=== PATIENT | female | born 1940 | race Caucasian/White ===

== ENCOUNTER → 2016-07-10 | Outpatient (CLI) | payer OTHER ==
[~2016-07-10] MED LIST: ALEN70TA2 PO; ASCO10003 PO; ASPI-232 PO; ATOR-24 PO; CALCTAB5 PO; CYAN100020 PO; DICL75TA2 PO; ESCI10TA17 PO; HYDR-4383 PO; LEVO25TA PO; LPR25 PO; MULT-506 PO; OMEG10007 PO; RXC5 PO; SERT1TAB72 PO
--- NOTE | 2016-07-10 16:05 | DIAGNOSTIC IMAGING REPORT ---
CHEST 2 VIEWS ROUTINE CLINICAL HISTORY: Preoperative evaluation. COMPARISON STUDY: Chest radiograph June 09, 2014 PA FINDINGS: Incidental note is made of a right shoulder arthroplasty. Lung volumes are normal. There is no pneumothorax or pleural effusion. There is borderline cardiomegaly without evidence of pulmonary edema. Linear left lung opacity suggests atelectasis. Lateral view demonstrates several thoracic spine compression deformities which are new since exam of June 09, 2014 but likely chronic. IMPRESSION: 1. No acute findings. 2. Borderline cardiomegaly. Electronically signed by: Chavez Xavier M.D. 07/10/2016 4:04 PM Dictated Date/Time: 07/10/2016 4:02 PM
== END | disposition home or self-care (01) ==
LOC: C.RAD 15:00
PROVIDERS: ATTEND Orthopaedic Surgery
DX: Z01.810 Encounter for preprocedural cardiovascular examination (principal); Z01.811 Encounter for preprocedural respiratory examination; Z01.812 Encounter for preprocedural laboratory examination; M25.511 Pain in right shoulder; I51.7 Cardiomegaly

== ENCOUNTER → 2016-07-17 | Outpatient (CLI) | payer OTHER ==
[~2016-07-17] MED LIST changes: -CYAN100020 PO; -HYDR-4383 PO; -OMEG10007 PO; -SERT1TAB72 PO
--- NOTE | 2016-07-17 12:31 | DIAGNOSTIC IMAGING REPORT ---
RIGHT SHOULDER CT CT DOSE: 390.32 mGycm HISTORY: Right shoulder pain. TECHNIQUE: Multiaxial CT images of the right shoulder were performed and reformatted in the sagittal and coronal plane without the use of contrast. COMPARISON: Right shoulder 07/10/2016. FINDINGS: There is an old, healed right anterior second rib fracture. There is a reverse right total shoulder arthroplasty. Metallic artifact results in suboptimal evaluation of the right shoulder. No definite acute fracture or dislocation within the right shoulder. One of the glenoid screws is fractured. The right clavicle is intact. IMPRESSION: The patient is status post a reverse right total shoulder arthroplasty. 1 of the glenoid screws is fractured. Otherwise, no acute fracture or dislocation within the right shoulder. Electronically signed by: Rafael Quarles M.D. 07/17/2016 12:29 PM Dictated Date/Time: 07/17/2016 12:25 PM
== END | disposition home or self-care (01) ==
LOC: C.CTS 11:41
PROVIDERS: ATTEND Orthopaedic Surgery
DX: M25.511 Pain in right shoulder (principal)

== ENCOUNTER 2016-07-28 06:30 | Inpatient (IN) | payer OTHER ==
[2016-07-10 15:46] LABS: BASO % 0.4 %; BASO ABS # 0.02 K/uL (0-0.2); COMPLETE YES; HEMATOCRIT 36.9 % (37-47); IG% 0.2 %; LYMPH % 32.9 %; LYMPH ABS # 1.68 K/uL (1.2-3.4); MEAN CELL VOLUME 86.8 fL (80-100); MEAN CORPUSCULAR HEMOGLOBIN 30.8 pg (25-34); MEAN CORPUSCULAR HGB CONC 35.5 g/dl (32-36); MEAN PLATELET VOLUME 9.7 fL (7.4-10.4); MONO % 10.6 %; NEUT % 54.9 %; PLATELET COUNT 289 K/uL (130-400); RED BLOOD COUNT 4.25 M/uL (4.2-5.4)
[2016-07-10 16:00] LABS: PROTHROMBIN TIME (PATIENT) 10.5 SECONDS (9.0-12.0)
[2016-07-10 16:22] LABS: BLOOD UREA NITROGEN 5 mg/dl (7-18); BUN/CREATININE RATIO 10.8 (10-20); CALCIUM 9.6 mg/dl (8.5-10.1); CARBON DIOXIDE 27 mmol/L (21-32); CHLORIDE 97 mmol/L (98-107); GLUCOSE 76 mg/dl (70-99); POTASSIUM 3.8 mmol/L (3.5-5.1); SODIUM 134 mmol/L (136-145)
[2016-07-10 17:01] LABS: URINE APPEARANCE CLEAR (CLEAR); URINE BILIRUBIN NEG (NEG); URINE COLOR YELLOW; URINE EPITHELIAL CELL AUTO 0-5 /lpf (0-5); URINE NITRITE NEG (NEG); URINE PH 5.5 (4.5-7.5); URINE SPECIFIC GRAVITY 1.003 (1.000-1.030); UROBILINOGEN NEG (NEG)
[2016-07-10 17:05] LABS: MANUAL MICROSCOPIC REQUIRED? NO; REVIEW REQ? NO
[2016-07-14 09:00] VITALS: BMI 23.0
--- NOTE | 2016-07-27 10:53 | HISTORY & PHYSICAL EXAMINATION ---
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 HISTORY OF PRESENT ILLNESS: Monique is a very pleasant 75-year-old female, underwent a reverse right shoulder arthroplasty 2 years ago. She did well for a year and a half, but then felt a snap in her shoulder and has been having shoulder pain for the past 6 months. X-rays showed loosening of the glenoid baseplate with a broken screw. She has constant soreness of her shoulder and after extensive counseling with her and her family, she elected to proceed with a revision baseplate with possible conversion to a reverse shoulder arthroplasty versus hemiarthroplasty. PAST MEDICAL HISTORY: Significant for an IA in 1998, hypothyroidism and arthritis. PAST SURGICAL HISTORY: Significant for a reverse right shoulder arthroplasty 2 years ago and hysterectomy. ALLERGIES: INCLUDE MACROBID. MEDICATIONS: Include baby aspirin 81 mg daily, Lipitor 40 mg daily, Voltaren 75 mg twice a day, Lopressor 25 mg daily, Synthroid 0.25 mg daily, and Fosamax 70 mg weekly. FAMILY HISTORY: Noncontributory. SOCIAL HISTORY: She smokes half a pack a day. She drinks about 4 drinks per week and she lives on her own. REVIEW OF SYSTEMS: She complains of right shoulder pain. All other pertinent review of systems are negative. PHYSICAL EXAMINATION: GENERAL: She is awake, alert and oriented x3. She is in no apparent distress. She is very pleasant. HEENT: Pupils equal, round and reactive to light. Extraocular motions are intact. Oral mucosa is pink and moist. HEART: Regular rate per radial pulse. LUNGS: Ingris symmetrically bilaterally with no audible breath sounds. ABDOMEN: Soft, nontender, and nondistended. MUSCULOSKELETAL: On physical examination of the right shoulder, she has about 90 degrees of forward elevation and 90 degrees of abduction. Passively, I can get her a little bit further and she has a lot of pain. She has a lot of pain doing any motion of her shoulder. There are no signs of infection. The incisions are well healed. She is neurovascularly intact. IMAGING STUDIES: X-rays of the right shoulder show some loosening of the glenoid baseplate and a broken superior locking screw. 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 PLAN: We will proceed with a revision reverse right shoulder arthroplasty. She is consented for both the reverse as well as a conversion to hemiarthroplasty. Postoperatively, she will be placed in an arm sling and kept overnight for postoperative medical evaluation.
[2016-07-28] VITALS (8 sets, daily range): BP systolic 94–133; BP diastolic 59–74; PULSE 72–81; TEMP 36.3–36.8; O2SAT 94–99; Ht 165.1 cm; Wt 63.6 kg
[~2016-07-28] VITALS: Ht 165.1 cm; Wt 63.6 kg
[~2016-07-28 06:30] MED LIST changes: +ACETAMINOPHEN 500 MG TAB PO SCH; +BUPIVACAINE/EPINEPHRINE 0.25% 1:200,000 30 ML VIAL ONE; +CEFAZOLIN 2000 MG/60 ML D5W 60 ML IV SCH; +CeleBREX 200 MG CAP PO SCH; +DEXAMETHASONE SOD INJ 4 MG/ML VIAL ONE; +FAMOTIDINE 20 MG TAB PO SCH; +GABAPENTIN 300 MG CAP PO SCH; +LACTATED RINGER'S 1000ML 1,000 ML IV SCH; +LACTATED RINGER'S 1000ML IV SCH; +ROPIVACAINE 5MG/ML 30 ML 150 MG, BUPIVACAINE/EPINEPHR 0.5% MPF 30 ML, KETOROLAC TROMETH... INFIL SCH; -RXC5 PO; +TRAMADOL HCL 50 MG TAB PO SCH
--- NOTE | 2016-07-28 06:30 | History & Physical Bridge Note ---
H&P Re-Evaluation Bridge Note: I have examined the patient, reviewed the History & Physical and in the interval since the performance of the History & Physical I have noted the following changes of clinical significance: No changes noted
[2016-07-28] MEDS ORDERED: PROPOFOL IV EMULSION 10 MG/ML 20 ML VIAL IV ONE ×2 (08:28→13:09)
[2016-07-28] MEDS ORDERED: NEOSTIGMINE METHYLSULFATE 5 MG/5 ML SYR ONE (08:28)
[2016-07-28] MEDS ORDERED: ONDANSETRON INJ 2 MG/ML 2 ML VIAL ONE ×2 (08:28→13:26)
[2016-07-28] MEDS ORDERED: ROCURONIUM BROMIDE 10 MG/ML 5 ML VIAL ONE (08:28)
[2016-07-28] MEDS ORDERED: MIDAZOLAM HCL 1 MG/ML 2ML VIAL ONE ×2 (08:28→09:51)
[2016-07-28] MEDS ORDERED: LIDOCAINE HCL 2% 2 ML VIAL (20MG/ML) ONE (08:28)
[2016-07-28] MEDS ORDERED: GLYCOPYRROLATE INJ 0.2 MG/ML VIAL ONE (08:28)
[2016-07-28] MEDS ORDERED: FENTANYL CITRATE INJ 50 MCG/1 ML 2 ML VIAL ONE ×3 (08:28→13:31)
[2016-07-28] MEDS ORDERED: BACITRACIN 50000 UNIT VIAL ONE (09:56)
[2016-07-28] MEDS ORDERED: ORTHO JOINT ANESTHETIC ONE (09:56)
[2016-07-28] MEDS ORDERED: PHENYLEPHRINE HCL INJ 10 MG/ML VIAL ONE (10:53)
[2016-07-28] MEDS ORDERED: DEXAMETHASONE SOD INJ 4 MG/ML VIAL ONE (10:53)
[2016-07-28] MEDS ORDERED: EpHEDrine SULFATE INJ 50 MG/ML AMP ONE (10:54)
[2016-07-28] MEDS ORDERED: ATROPINE SULFATE 0.1 MG/ML 5ML SYR IV PRN (13:30)
[2016-07-28] MEDS ORDERED: PROMETHAZINE HCL INJ 6.25 MG in SODIUM CHLORIDE 0.9% 50ML 50 ML IV PRN (13:30)
[2016-07-28] MEDS ORDERED: FENTANYL CITRATE INJ 50 MCG/1 ML 2 ML VIAL IV PRN (13:30)
[2016-07-28] MEDS ORDERED: ONDANSETRON INJ 2 MG/ML 2 ML VIAL IV PRN ×2 (13:30→13:45)
[2016-07-28] MEDS ORDERED: EpHEDrine SULFATE INJ 50 MG/ML AMP IV PRN (13:30)
[2016-07-28] MEDS ORDERED: ESMOLOL HCL 10 MG/ML 10 ML VIAL ONE (13:33)
--- NOTE | 2016-07-28 13:44 | [facility] Post Operative Brief Note ---
Immediate Operative Summary Operative Date Jul 28, 2016. Pre-Operative Diagnosis Failed Right Reverse Shoulder Arthroplasty with Loose Glenoid Baseplate Post-Operative Diagnosis Failed Right Reverse Shoulder Arthroplasty with Loose Glenoid Baseplate Procedure(s) Performed Right Revision Total Shoulder Arthroplasty--Cemented Surgeon Dr. Toth Nutrition Program Instructor Surgeon(s) JENNIFER Sullivan Estimated Blood Loss 350 ml Findings as above Specimens A. Removed Hardware Right Shoulder Complication(s) None Disposition Recovery Room / PACU
[2016-07-28] MEDS ORDERED: METOCLOPRAMIDE HCL INJ 5 MG/ML 2 ML VIAL IV PRN (13:45)
[2016-07-28] MEDS ORDERED: OXYCODONE HCL IR 5 MG TAB (IMMEDIATE RELEASE) PO PRN (13:45)
[2016-07-28] MEDS ORDERED: BISACODYL 10 MG SUPP PR PRN (13:45)
[2016-07-28] MEDS ORDERED: MoRPHine SULFATE 2 MG/ML CARP IV PRN (13:45)
[2016-07-28] MEDS ORDERED: MAGNESIUM HYDROXIDE SUSP 30 ML UDC PO PRN (13:45)
[2016-07-28] MEDS ORDERED: NALOXONE HCL 0.4 MG/1 ML VIAL/CARP IV PRN (13:45)
[2016-07-28] MEDS ORDERED: SOD PHOSPHATE/SOD BIPHOSPHATE ENEMA 132 ML BTL PR PRN (13:45)
--- NOTE | 2016-07-28 14:54 | Anesthesiology Progress Note ---
Anesthesia Post Op Note Date & Time Jul 28, 2016 at 14:54 Vital Signs Pain Intensity: 0 Vital Signs Past 12 Hours Date Time Temp Pulse Resp B/P Pulse Ox O2 Delivery O2 Flow Rate FiO2 07/28/16 14:45 36.5 73 23 106/60 97 Nasal Cannula 2 07/28/16 14:35 74 13 97/57 98 Nasal Cannula 2 07/28/16 14:25 80 15 80/58 98 Mask 10 07/28/16 14:15 85 16 105/69 98 Mask 10 07/28/16 14:09 36.6 91 17 136/73 100 Mask 10 07/28/16 07:06 36.8 78 18 133/74 98 Room Air Notes Mental Status: alert / awake / arousable, participated in evaluation Pt Amnestic to Procedure: Yes Nausea / Vomiting: adequately controlled Pain: adequately controlled Airway Patency, RR, SpO2: stable & adequate BP & HR: stable & adequate Hydration State: stable & adequate Neuraxial Anesthesia: was administered, sensory block is resolving Anesthetic Complications: no major complications apparent
[2016-07-28] MEDS: D5W AND 1/2NSS + 20MEQ KCL 1,000 ML IV SCH (15:52)
[2016-07-28] MEDS: ACETAMINOPHEN IV 1,000 MG in EMPTY BAG 0 ML IV SCH ×2 (15:59→23:51)
--- NOTE | 2016-07-28 17:27 | OPERATIVE REPORT ---
DATE OF OPERATION: 07/28/2016 PREOPERATIVE DIAGNOSIS: Aseptic loosening of a right glenoid baseplate. POSTOPERATIVE DIAGNOSIS: Same. PROCEDURE: Removal of right reverse shoulder arthroplasty including humeral and glenoid components and conversion to reverse total shoulder arthroplasty. SURGEON: Dr. Melchor Toth. SENIOR FIRE PROTECTION ENGINEER: Agustín Marcano PA-C, whose assistance was necessary for positioning the arm and helping with instrumentation. ANESTHESIA: General with a right interscalene nerve block. COMPLICATIONS: None. CONDITION: Stable to PACU. INDICATIONS: This case did take significant increased time given the amount of scarring and the fact it was a revision procedure. The case took about twice as long as normal to find a soft tissue planes and remove scar tissue to get adequate exposure. INDICATIONS: Monique is a pleasant 75-year-old female who underwent a reverse right shoulder arthroplasty 2 years ago. She did well for a year and a half, unfortunately 6 months ago she had a sudden pain in her shoulder and she has been having pain ever since. X-rays from my office did show loosening of the glenoid baseplate. Lab values including white count, sed rate and CRP were all negative and CT scan showed signs of loosening. With continued pain she elected to undergo a revision shoulder replacement. OPERATION AND FINDINGS: On 07/28/2016 she arrived at [facility] for the above procedure. She was seen in the preoperative holding area and the operative extremity was identified and signed. She was given a preoperative antibiotic and a right interscalene nerve block. She was taken back to the operating room, laid on the table in supine position and put under general anesthesia. She was then put into the beachchair position. The right shoulder was prepped and draped in a sterile fashion. Time-out was done and the patient and operative extremity was properly identified. The previous deltopectoral interval was opened. Time was spent going through the clavipectoral fascia and exposing the anterior shoulder. Significant time was spent developing tissue planes through the scar tissue. The subscapularis was fully repaired from the previous surgery and looked good. There was also significant tendinous structures at the supraspinatus. The rotator interval was opened up and the subscapularis was released with a centimeter of cuff tissue remaining. The shoulder was then dislocated and the humeral tray and bearing were removed. There were no signs of infection. The glenoid was then exposed. The glenosphere and the glenoid baseplate was obviously loose. The glenosphere was removed first and then the glenoid baseplate was removed by removing all the screws and pulling it off. They came off fairly easily. There was a central cavitary defect and a defect from the 1 o'clock to the 3 o'clock position. Significant time was spent making sure I had good visualization and I felt like I had enough bone stock to replace another baseplate. The central guidepin was once again drilled. I drilled a little bit more posterior than before to get into better bone stock and I felt I was able to get a better purchase with the drill. The glenoid baseplate was then re-reamed and I was able to get about 75% coverage of the baseplate with the anterior superior quadrant to be slightly missing. Significant time was spent removing fibrous tissue from around the previous drill holes. Once the glenoid was properly prepared, the central defect was filled with Synthes Norian bone graft. While the bone graft was still soft, the glenoid baseplate was placed and a 40 mm central screw was placed. I was able to get excellent purchase. I then waited for the surrounding bone graft to do harden and heal. Superior, inferior and posterior screws were placed, each one I was able to get through good bone stock and get great purchase. No screw was placed anteriorly. I felt like I was able to get a very stable baseplate. A 36 mm eccentric glenosphere was then placed. The proximal humerus was then exposed. Several different trial humeral trays were used and a size 5+3 seemed to be the best fit and the best offset. A final +3 humeral bearing was snapped into a +5 humeral tray and the ring lock mechanism was engaged. The humeral tray was then attached to the humeral stem. The shoulder was reduced, brought through a full range of motion and felt to be stable. The surrounding soft tissues were all irrigated with 3 liters of normal saline solution with bacitracin. Surrounding soft tissues were then injected with 100 mL in orthopedic pain control cocktail. Overall, I was happy with the stability and the motion. The subscapularis was then tenodesed back to the lesser tuberosity with [id number] FiberWire sutures. I was also able to get some sutures in the lateral rotator interval. A drain was placed. The axillary nerve was palpated. The wound was once again irrigated and the skin was closed with 2-0 Vicryl and a running 3-0 V-Loc suture. A Prineo dressing was placed. She was then placed in a regular arm sling, extubated, transferred to a litter and taken to the postanesthesia care unit in stable condition. She tolerated the procedure well. IMPLANTS REMOVED: I removed a Biomet comprehensive +3 humeral bearing and a standard humeral tray as well as a +3 lateralized 36 mm eccentric glenosphere and a 25 mm mini baseplate. IMPLANTS USED: Standard 36 mm eccentric glenosphere on a 25 mm mini baseplate with a 40 mm central screw, a 30 mm posterior peripheral locking screw and a 35 mm superior and inferior peripheral locking screw, a +5 humeral tray and a +3 humeral bearing were used. No cement was used during the case, but Norian bone graft was used. I attest to the content of the Intraoperative Record and any orders documented therein. Any exceptio ns are noted below.
[2016-07-28] MEDS: CEFAZOLIN IV 2,000 MG in DEXTROSE 5% 50ML 50 ML IV SCH (17:38)
[2016-07-28] MEDS: KETOROLAC TROMETHAMINE 15 MG/ML VIAL IV. SCH ×2 (17:39→23:51)
[2016-07-28] MEDS: CALCIUM 600MG + VIT D 400 IU TAB PO SCH (20:26)
[2016-07-28] MEDS: DOCUSATE SODIUM 100 MG CAP PO SCH (20:27)
[2016-07-28] MEDS ORDERED: ATORVASTATIN 40 MG TAB PO SCH (21:00)
[2016-07-28] MEDS ORDERED: SENNA 8.6 MG TAB PO SCH (21:00)
[2016-07-28] MEDS ORDERED: METOPROLOL TARTRATE 25 MG TAB PO SCH (21:00)
[2016-07-28] MEDS ORDERED: ESCITALOPRAM OXALATE 10 MG TAB PO SCH (21:00)
[2016-07-29] MEDS: D5W AND 1/2NSS + 20MEQ KCL 1,000 ML IV SCH ×2 (01:29→11:30)
[2016-07-29] MEDS: CEFAZOLIN IV 2,000 MG in DEXTROSE 5% 50ML 50 ML IV SCH (01:30)
[2016-07-29 04:00] VITALS: BP 119/73; PULSE 64; TEMP 36.3; O2SAT 99
[2016-07-29] MEDS: KETOROLAC TROMETHAMINE 15 MG/ML VIAL IV. SCH (05:56)
[2016-07-29] MEDS ORDERED: LEVOTHYROXINE 25 MCG TAB PO SCH (06:00)
[2016-07-29 07:06] VITALS: BP 121/72; PULSE 62; TEMP 36.6; O2SAT 99
[2016-07-29 07:23] LABS: HEMATOCRIT 29.9 % (37-47); MEAN CELL VOLUME 90.3 fL (80-100); MEAN CORPUSCULAR HEMOGLOBIN 31.1 pg (25-34); MEAN CORPUSCULAR HGB CONC 34.4 g/dl (32-36); MEAN PLATELET VOLUME 9.9 fL (7.4-10.4); PLATELET COUNT 236 K/uL (130-400); RED BLOOD COUNT 3.31 M/uL (4.2-5.4); WHITE BLOOD COUNT 15.92 K/uL (4.8-10.8)
[2016-07-29 07:47] LABS: BUN/CREATININE RATIO 18.1 (10-20); CALCIUM 8.3 mg/dl (8.5-10.1); CREATININE 0.57 mg/dl (0.60-1.20); POTASSIUM 3.9 mmol/L (3.5-5.1)
[2016-07-29] MEDS: CALCIUM 600MG + VIT D 400 IU TAB PO SCH (08:43)
[2016-07-29] MEDS: DOCUSATE SODIUM 100 MG CAP PO SCH (08:43)
[2016-07-29] MEDS: ACETAMINOPHEN IV 1,000 MG in EMPTY BAG 0 ML IV SCH (08:43)
[2016-07-29] MEDS ORDERED: RXC5 PO (08:47)
--- NOTE | 2016-07-29 08:49 | Discharge Instructions ---
Discharge Instructions Date of Service Jul 29, 2016. Admission Reason for Admission: R Shoulder Mechanical Complication Interal Pros Discharge Discharge Diagnosis / Problem: R reverse total shoulder Discharge Goals Goal(s): Decrease discomfort, Improve function Activity Recommendations Activity Limitations: as noted below Shower/Bathe: may shower/bathe in 3 days sling for 6 weeks . Instructions / Follow-Up Instructions / Follow-Up Activity and Therapy Recommendations: * Wear your sling for 6 weeks, unless otherwise instructed. You may remove your sling to shower and to dress, but otherwise, you should be in your sling at all times, including while sleeping * The shoulder replacement is very stable and you can use your hand while in the sling * Physical Therapy should start about 6 weeks from your day of surgery. Therapy will last about 8-12 weeks * You were shown a series of exercises in the hospital. Do these exercises daily including the exercises you were shown in physical therapy. Medications: * Narcotic You will likely be sent home from the hospital with a prescription for the narcotic pain medication that worked best throughout your stay. * Other medications may be prescribed for specific circumstances. If you have any questions, please call the office at . * Resume previous home medications unless otherwise instructed Dressing Care: You will likely have a Prineo dressing covering your incision. This looks like a glued on clear mesh dressing. Do not remove this dressing until you follow- up in my office in 2-3 weeks. Its pretty hard to peel it off. You may leave the Prineo dressing uncovered or cover it if it is draining a little bit. No further dressing care is required Showering: You may shower 3 days from the day of surgery. Leave the Prineo dressing intact and let the soapy shower water run over it. Do not scrub or soak the dressing or the incision. Things To Watch For: * Drainage from the incision site that occurs more than one week after your surgery. * Increased redness at the incision site. * Fever above 102 degrees Fahrenheit. * Unusual chest pain or shortness of breath. * Call [facility] at with any of the above problems Follow-Up Visit: Follow-up with Dr. Toth 2 weeks after your day of surgery. An appointment was probably scheduled when you signed-up for surgery in the office. If you have any questions call Office Instructions: More detailed instructions as well as Frequently Asked Questions were provided in a folder by our office when you signed-up for surgery. Please review these instructions when you get home. If you have any further questions or concerns, please feel free to call the office at [phone] Current Hospital Diet Patient's current hospital diet: Regular Diet Discharge Diet Recommended Diet: Regular Diet Procedures Procedures Performed: Right Revision Total Shoulder Arthroplasty--Cemented Pending Studies Studies pending at discharge: no Medical Emergencies . Who to Call and When: Medical Emergencies: If at any time you feel your situation is an emergency, please call 911 immediately. . Non-Emergent Contact Non-Emergency issues call your: Surgeon Call Non-Emergent contact if: wound has increased drainage, wound has increased redness . "Provider Documentation" section prepared by Melchor Toth. VTE Core Measure Inpt VTE Proph given/why not?: Treatment not indicated
[2016-07-29] MEDS ORDERED: ASPIRIN 81 MG ECTAB PO SCH (09:00)
[2016-07-29] MEDS ORDERED: MULTIVITAMIN TAB PO SCH (09:00)
[2016-07-29] MEDS ORDERED: ASCORBIC ACID 500 MG TAB PO SCH (09:00)
[2016-07-29 11:02] VITALS: BP 121/72; PULSE 62; TEMP 36.6; O2SAT 99
--- NOTE | 2016-07-29 18:22 | PROGRESS NOTE ---
DATE: 07/29/2016 CHIEF COMPLAINT: Status post revision reverse shoulder arthroplasty postop day #1. PROGRESS: Monique was seen and examined at bedside today. She was sitting up at bedside eating breakfast. Overall, she is doing very well. She said she really does not have much pain in her right shoulder. She is happy with her progress at this point. She had no acute events overnight and has no complaints. PHYSICAL EXAMINATION: RIGHT SHOULDER: The dressing is clean and dry and the drain is to suction. She is wearing her sling as instructed. Her radial, median and ulnar nerves were checked and intact. Her axillary nerve was not checked yet. LABORATORY DATA: She has an H\T\H today of 10.3 and 29.9. Her glucose is 135. Her vital signs are stable on room air and she is voiding on her own. IMPRESSION: Status post revision reverse shoulder arthroplasty postop day #1. PLAN: At this point, she is doing very well. We will go ahead and keep her in a sling for 6 weeks. I did give her a script to start home health for hand, wrist and elbow exercises as well some equilibrium training. The nursing staff can change her dressing and pull the drain and after she is seen by physical therapy today she can be discharged to home.
--- NOTE | 2016-07-30 01:45 | DISCHARGE SUMMARY ---
DISCHARGE DIAGNOSIS: Aseptic loosening of right reverse shoulder arthroplasty. PROCEDURE: Revision reverse right shoulder arthroplasty on 07/28/[address] Melchor Toth. DISCHARGE INSTRUCTIONS: 1. Oxycodone 5 mg every 4 hours as needed for pain. 2. Fosamax 70 mg weekly. 3. Vitamin C 1000 mg daily. 4. Aspirin 81 mg daily. 5. Lipitor 40 mg daily. 6. Caltrate 1200 mg twice a day. 7. Voltaren 75 mg twice a day. 8. Lexapro 10 mg daily. 9. Synthroid 25 mcg daily. 10. Lopressor 25 mg daily. 11. Daily multivitamin. 12. Right arm sling for 6 weeks. 13. No physical therapy with the right shoulder for 6 weeks. 14. May shower in 3 days. 15. Follow up with Dr. Toth in 2-3 weeks. 16. Call the office of Dr. Ttoh with any questions or concerns. HOSPITAL COURSE: Monique is a very pleasant 75-year-old female who underwent a reverse right shoulder arthroplasty 2 years ago. Unfortunately, x-rays showed loosening of the glenoid baseplate. After failing a complete course of conservative treatment with continued pain, she elected to undergo revision reverse shoulder arthroplasty. On 07/28/2016, she arrived at [facility] and underwent a revision reverse right shoulder arthroplasty without complications. She had a general anesthetic and a right interscalene nerve block. Postoperatively, she was discharged to general orthopedic floors. Her hospital course was uneventful. On postop day #1, her H\T\H was stable at 10.3 and 29.9. She was not having pain in the shoulder. The nursing staff changed the dressing and pulled the drain. She was able to do hand, wrist and elbow exercises with physical therapy and she was subsequently discharged to home with the above instructions. [facility]
[2017-02-27] MEDS ORDERED: LPR25 PO (23:22)
[2017-03-04] MEDS ORDERED: ULT50X PO (08:47)
[2017-03-04] MEDS ORDERED: PHEN-1042 PO (08:47)
[2017-03-04] MEDS ORDERED: AMB5 PO (08:47)
[2017-03-04] MEDS ORDERED: SENN8.6T7 PO (08:47)
[2017-03-04] MEDS ORDERED: CPR500 PO (08:47)
[2017-03-04] MEDS ORDERED: LDDP5 TD (08:47)
[2017-03-04] MEDS ORDERED: HYDR-5688 PO (08:47)
== END 2016-07-29 13:39 | disposition home or self-care (01) | DRG 483 ==
LOC: ENRESERVTM → ENRESERVDT → C.ACU 06:30 → C.3E 07:00
PROVIDERS: ADMIT Orthopaedic Surgery; ATTEND Orthopaedic Surgery
PROC: 0RRJ00Z Replacement of Right Shoulder Joint with Reverse Ball and Socket Synthetic Substitute, Open Approach (ICD-10-PCS; principal; 2016-07-28 09:00)
PROC: 0RPJ0JZ Removal of Synthetic Substitute from Right Shoulder Joint, Open Approach (ICD-10-PCS; principal; 2016-07-28 09:00)
DX: T84.038A Mechanical loosening of other internal prosthetic joint, initial encounter (principal); Z96.611 Presence of right artificial shoulder joint; Y83.1 Surgical operation with implant of artificial internal device as the cause of abnormal reaction of the patient, or of later complication, without mention of misadventure at the time of the procedure; E03.9 Hypothyroidism, unspecified; F17.210 Nicotine dependence, cigarettes, uncomplicated; I25.2 Old myocardial infarction; Z90.710 Acquired absence of both cervix and uterus; Z79.82 Long term (current) use of aspirin; Z79.899 Other long term (current) drug therapy